=== PATIENT | female | born 1950 | race Caucasian/White ===

== ENCOUNTER → 2017-02-01 | Outpatient (CLI) | payer OTHER, MEDICARE | LOC: CIMAGING 09:47 | DX: Z12.31 Encounter for screening mammogram for malignant neoplasm of breast (principal) | CPT/HCPCS: G0202 ==

== ENCOUNTER → 2017-02-14 | Outpatient (CLI) | payer OTHER, MEDICARE | LOC: CIMAGING 12:35 | DX: R92.2 Inconclusive mammogram (principal) | CPT/HCPCS: 76641; G0206 ==

== ENCOUNTER → 2017-03-23 | Outpatient (CLI) | payer OTHER, MEDICARE | LOC: BMCIMAGING 09:36 | PROVIDERS: ATTEND Podiatrist Foot & Ankle Surgery | DX: M20.11 Hallux valgus (acquired), right foot (principal); M20.12 Hallux valgus (acquired), left foot; M19.071 Primary osteoarthritis, right ankle and foot; M19.072 Primary osteoarthritis, left ankle and foot ==

== ENCOUNTER → 2018-02-13 | Outpatient (CLI) | payer OTHER, MEDICARE | LOC: CIMAGING 14:03 | PROVIDERS: ATTEND Internal Medicine | DX: Z12.31 Encounter for screening mammogram for malignant neoplasm of breast (principal) ==

== ENCOUNTER 2018-12-05 10:20 | Emergency (ER) | payer OTHER, MEDICARE ==
--- NOTE | 2018-12-05 10:31 | EDPHY ---
H & P Time Seen by Provider: 12/05/18 10:30 HPI/ROS: Chief complaint. Back pain HPI. 68-year-old female presents emergency department with 2 month history low back pain with radiation to the right lower extremity. Worse the past 2 weeks. No injury. Hard to bear weight. She had an MRI 2 weeks ago which showed S1 impingement syndrome. She is scheduled for injections. She used prednisone taper which helped the pain. However this morning she was incontinent of stool while lying in bed listening to a pot cast. Able to control her bladder. Apparently there was some mottling on the MRI and the father has multiple myeloma. Patient is scheduled for blood test. No new weakness to the leg. No left-sided symptoms. No altered sensation to the legs ROS 10 systems were reviewed and negative with the exception of the elements mentioned in the history of present illness Past Medical/Surgical History: Back issues Social History: , nonsmoker, no alcohol Smoking Status: Never smoked Physical Exam: General Appearance: Alert well-developed female mild distress. Vital signs are stable Eyes: Pupils equal and round no pallor or injection. ENT, Mouth: Mucous membranes are moist. Respiratory: There are no retractions, lungs are clear to auscultation. Cardiovascular: Regular rate and rhythm. Gastrointestinal: Abdomen is soft and nontender, no masses, bowel sounds normal. Neurological: Awake and alert, sensory and motor exams grossly normal. Sensation is normal without saddle anesthesia. Reflexes are symmetrical. Straight leg raising negative at 30 degrees on left and mildly positive on right at 30 degrees. Great toe strength is normal Skin: Warm and dry, no rashes. Musculoskeletal: Neck is supple nontender. Tenderness to the right buttock area. No tenderness over the L-spine. Extremities symmetrical, full range of motion. Psychiatric: Patient is oriented X 3, there is no agitation. Constitutional: Initial Vital Signs Temperature (C) 36.8 C 12/05/18 10:24 Heart Rate 76 12/05/18 10:24 Respiratory Rate 17 12/05/18 10:24 Blood Pressure 141/105 H 12/05/18 10:24 O2 Sat (%) 93 12/05/18 10:24 O2 Delivery Mode Room Air Allergies/Adverse Reactions: No Known Allergies Allergy (Unverified 12/05/18 10:24) Home Medications: Medication Instructions Recorded Prednisone 12/05/18 Medical Decision Making - Diagnostics Imaging Results: MRI is not in our system. We will call for results MRI report from exam performed on 11/24/2018 is obtained from [facility]. Findings include T11-T12 level demonstrates a mild broad-based annular bulge and moderate facet arthropathy causing mild spinal canal and minimal bilateral neural foraminal narrowing T12-L1 level is unremarkable L1-L2 level demonstrates minimal broad-based annular bulge and facet arthropathy causing no significant encroachment L2-L3 level demonstrates a mild broad-based annular bulge. There is a small right posterior lateral protrusion and osteophyte complex. Moderate facet arthropathy bilateral. Mild bilateral neural foraminal narrowing, right greater than left. Mild central spinal canal narrowing L3-L4 level demonstrates a mild broad-based annular bulge. Moderate facet arthropathy bilateral. Mild spinal canal and minimal bilateral neural foraminal narrowing. L4-L5 level demonstrates a mild broad-based annular bulge. Moderate facet arthropathy bilateral. Mild spinal canal and mild right and minimal left neural foraminal narrowing. L5-S1 level demonstrates a right posterior lateral protrusion in the neural foramen measuring 14 mm in width and extending posteriorly 6 mm. Mild underlying broad-based annular bulge. Moderate facet arthropathy bilaterally. Severe right neural foraminal narrowing medially and mild right lateral recess narrowing. Mild left neural foraminal narrowing. 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 The most significant level is at L5-a S1 where there is a large right posterior lateral protrusion causing severe right neural foraminal narrowing medially. ED Course/Re-evaluation: I consulted and discussed case with Dr. Meyer for Neurosurgery. We reviewed the MRI lumbar spine report. Dr. Meyer does not feel that this is suspicious and worrisome for cauda equina syndrome. He does not feel we need to repeat the MRI today A discussed this with patient and her . They are comfortable without repeating the a MRI. I did offer to repeat the MRI. Patient has no new or different symptoms. Apparently the MRI had some possible bony erosion or spotting and the patient has a family history of multiple myeloma. Is bony erosion or changes are not mention in the MRI report. CBC is obtained and is normal. Differential Diagnosis: I considered cauda equina syndrome with stool incontinence. The patient otherwise has no new or different symptoms. The MRI from 2 weeks ago is not concerning for cauda equina syndrome. Dr. Pantoja for Neurosurgery also feels not concerning for cauda equina syndrome. CBC is normal and not worrisome for blood dyscrasias. Patient is going to be seen tomorrow for steroid injection. - Data Points Laboratory Results: Laboratory Results 12/05/18 10:55 12/05/18 10:55 12/05/18 12/05/18 10:55 10:55 WBC 6.91 10^3/uL 10^3/uL (3.80-9.50) RBC 5.07 10^6/uL 10^6/uL (4.18-5.33) Hgb 15.7 g/dL g/dL (12.6-16.3) Hct 46.8 % % (38.0-47.0) MCV 92.3 fL fL (81.5-99.8) MCH 31.0 pg pg (27.9-34.1) MCHC 33.5 g/dL g/dL (32.4-36.7) RDW 12.3 % % (11.5-15.2) Plt Count 246 10^3/uL 10^3/uL (150-400) MPV 10.2 fL fL (8.7-11.7) Neut % (Auto) 52.5 % % (39.3-74.2) Lymph % (Auto) 34.4 % % (15.0-45.0) [place] % (Auto) 10.7 % % (4.5-13.0) Eos % (Auto) 0.9 % % (0.6-7.6) Baso % (Auto) 0.9 % % (0.3-1.7) Nucleat RBC Rel Count 0.0 % % (0.0-0.2) Absolute Neuts (auto) 3.63 10^3/uL 10^3/uL (1.70-6.50) Absolute Lymphs (auto) 2.38 10^3/uL 10^3/uL (1.00-3.00) Absolute Monos (auto) 0.74 10^3/uL 10^3/uL (0.30-0.80) Absolute Eos (auto) 0.06 10^3/uL 10^3/uL (0.03-0.40) Absolute Basos (auto) 0.06 10^3/uL 10^3/uL (0.02-0.10) Absolute Nucleated RBC 0.00 10^3/uL 10^3/uL (0-0.01) Immature Gran % 0.6 % % (0.0-1.1) Immature Gran # 0.04 10^3/uL 10^3/uL (0.00-0.10) Sodium 139 mEq/L mEq/L (135-145) Potassium 3.6 mEq/L mEq/L (3.5-5.2) Chloride 105 mEq/L mEq/L (97-110) Carbon Dioxide 25 mEq/l mEq/l (22-31) Anion Gap 9 mEq/L mEq/L (6-14) BUN 20 mg/dL mg/dL (7-23) Creatinine 0.7 mg/dL mg/dL (0.6-1.0) Estimated GFR > 60 Glucose 101 mg/dL H mg/dL (70-100) Calcium 9.7 mg/dL mg/dL (8.5-10.4) Departure - Departure Disposition: Home, Routine, Self-Care Clinical Impression: Low back pain Qualifiers: Chronicity: chronic Back pain laterality: right Sciatica presence: with sciatica Sciatica laterality: sciatica of right side Qualified Code(s): M54.41 - Lumbago with sciatica, right side; G89.29 - Other chronic pain; G89.29 - Other chronic pain Condition: Good Instructions: Lumbar Radiculopathy (ED), Lumbar Nerve Root Injection (DC) Additional Instructions: Keep your follow-up appointment for injection tomorrow Return sooner for worsening leg weakness, further stool incontinence or bladder symptoms. Referrals: Mally Shi MD [Primary Care Provider] - As per Instructions [place] Pantoja MD [Medical Doctor] - As per Instructions
[2018-12-05 11:05] LABS: PLATELET COUNT 246 10^3/uL (150-400)
[2018-12-05 11:46] VITALS: BP 147/84
== END 2018-12-05 12:01 | disposition home or self-care (01) ==
DX: M54.41 Lumbago with sciatica, right side (principal); G89.29 Other chronic pain

== ENCOUNTER → 2019-02-15 | Outpatient (CLI) | payer OTHER, MEDICARE | LOC: EMCIMAGING 09:28 | PROVIDERS: ATTEND Internal Medicine | DX: Z12.31 Encounter for screening mammogram for malignant neoplasm of breast (principal); Z80.3 Family history of malignant neoplasm of breast | CPT/HCPCS: 77067-PN ==